=== PATIENT | male | born 1965 | race Caucasian/White ===

== ENCOUNTER 2017-03-27 14:57 | Inpatient (IN) | payer MEDICARE ==
[2017-03-27 15:30] VITALS: BMI 62.1
[2017-03-27] MEDS: Carvedilol 3.125 MG TAB PO SCH (17:12)
[2017-03-27] MEDS: Acetaminophen 500 MG TAB PO PRN (19:03)
[2017-03-27] MEDS: Cefdinir 300 MG CAP PO SCH (20:34)
[2017-03-28 06:01] LABS: #Basophils 0.2 thou/uL (0.0-0.2); #Eosinphils 0.1 thou/uL (0.0-0.7); #Monocytes 1.7 thou/uL (0.11-0.59); #Neutrophils 10.2 thou/uL (1.40-6.50); %Basophils 1.4 % (0.0-1.0); %Eosinophils 0.9 % (0.0-10.0); %Lymphocytes 13.8 % (21.0-51.0); %Monocytes 12.1 % (0.0-10.0); %Neutrophils 71.8 % (42.0-75.0); Hemoglobin 10.7 g/dL (14.0-18.0); Mean Corpuscular Hemoglobin 28.1 pg (27.0-31.0); Mean Corpuscular Volume 85.2 fl (80.0-94.0); Mean Platelet Volume 5.4 fL (7.4-10.4); Platelet Count 619 thou/uL (130-400); RBC Distribution Width 12.5 % (11.5-14.5); White Blood Cell (WBC) Count 14.3 thou/uL (4.8-10.8)
[2017-03-28 06:03] LABS: Bilirubin Negative (Negative); Blood, Urine Small (Negative); Clarity Clear (Clear); Glucose, Urine (Dipstick) Negative (Negative); Leukocyte Trace (Negative); Nitrite Negative (Negative); Protein, Urine (Dipstick) Negative (Neg-Trace); Urobilinogen 0.2 mg/dL (0.2-1.0)
[2017-03-28 06:10] LABS: ALT (SGPT) 10 U/L (8-55); AST (SGOT) 12 U/L (5-34); Albumin 2.3 g/dL (3.5-5.0); Alkaline Phosphatase 91 U/L (40-150); Anion Gap 15 mmol/L (10-20); BUN (Urea Nitrogen) 8 mg/dL (8.4-25.7); Bilirubin, Total 0.3 mg/dL (0.2-1.2); Calc. Creatinine Clearance 288 mL/min (70-130); Calcium 8.5 mg/dL (7.8-10.44); Carbon Dioxide 23 mmol/L (22-29); Chloride 102 mmol/L (98-107); Estimated GFR-MDRD Greater than 90; Globulin 3.6 g/dL (2.4-3.5); Glucose 149 mg/dL (70-105); Potassium 3.7 mmol/L (3.5-5.1); Protein, Total 5.9 g/dL (6.0-8.3); Sodium 136 mmol/L (136-145)
[2017-03-28 06:13] LABS: Specific Gravity, Urine 1.006 (1.002-1.036)
[2017-03-28 06:17] LABS: Bacteria/HPF Rare-Few HPF (None Seen); RBC/HPF 0-3 HPF (0-3); WBC/HPF 0-3 HPF (0-3)
--- NOTE | 2017-03-28 06:42 | HP ---
DATE OF ADMISSION: 03/27/2017 HISTORY OF PRESENT ILLNESS: The patient is a 52-year-old obese white male with a long history of a large ventral hernia who presented to [facility] on 03/13/2017 with complaints o f abdominal pain and was found to have an incarcerated ventral hernia. He was initially felt to req uire nonsurgical treatment because of his significant risk for his morbidity because of lack of a se ptic presentation, but he continued to have increasing abdominal pain. Finally, had laparotomy done by Dr. Pedersen where he was found to have an area of ischemic intestine required resection, but wa s reconnected his wound was left open with a wound VAC, which has been discontinued and he has been on oral antibiotics, which will be discontinued in 2 days. However, it is felt that he has still co ntinued to have drainage from four different range in his abdomen, which two have been removed and o nly two are remaining, but will remain until he was seen by Dr. Pedersen in 2 weeks. For this reaso n, he is felt to require snf facility to care for the drain. He has been walking some i n the hospital, but prior to this was ambulating caring for his ADLs completely alone. PAST MEDICAL HISTORY: Type 2 diabetes seems to be well controlled; chronic venous insufficiency; es sential hypertension; and morbid obesity. PAST SURGICAL HISTORY: Positive for previous open cholecystectomy. SOCIAL HISTORY: Occasional alcohol use, smoked half a pack of cigarettes last year. ALLERGIES: No known allergies. CURRENT MEDICATIONS: Include lisinopril 40 mg daily, hydrochlorothiazide 25 daily, aspirin 325 michelle y, metformin 500 mg daily, carvedilol 3.125 daily, and Tylenol as needed. REVIEW OF SYSTEMS: Constitutional: He denies any headache, dizziness, change in vision or hearing, hoarseness or dysphagia. Pulmonary: Denies cough, sputum production, pneumonia, asthma, tuberculo sis. Cardiovascular: Denies chest pain, orthopnea, paroxysmal nocturnal dyspnea or edema. Gastroi ntestinal: The above-mentioned history of abdominal pain. No nausea, vomiting, or diarrhea. Genit ourinary: Denies dysuria, hematuria or nocturia. Musculoskeletal: Denies stiffness, swelling in j oints or extremities. Neurologic: Denies localized numbness, weakness in arms or extremities. PHYSICAL EXAMINATION: GENERAL: The patient is a morbidly obese middle-aged white male, in no acute distress sitting in th e bed. VITAL SIGNS: Showed him to have blood pressure 133/68, temperature of 101.2, pulse 106, respiration s 21, and O2 sats 94%. HEENT: Pupils are equal, round, and react to light and accommodation. Sclerae are anicteric. Conj unctivae are pale. Oral mucous membranes well hydrated. NECK: Supple, no nodes or masses. JVP is not elevated. LUNGS: Clear. CARDIOVASCULAR: Regular rhythm. ABDOMEN: Soft and nontender with draining a large amount of brown liquid from his right lower quadr ant with minimal tenderness. SKIN/EXTREMITIES: Display no edema, clubbing, cyanosis, but morbid obesity. NEUROLOGICAL: Intact. LABORATORY DATA: Obtained from previous hospital showed him to have no recent labs. ASSESSMENT: A 52-year-old white male with history of ischemic bowel from an incisional abdominal he rnia, who had resection of the ischemic bowel and large open abdominal wound, wound VAC in place wit h dry dressing in place, but also has a continuous drainage of a brown thin liquid from his right lo wer quadrant, felt possibly due to recurrent infection. He is only on cefdinir, we will be on this for the next 2 days according to the surgical recommendations, but he is febrile again today and we will repeat CBC and comprehensive metabolic profile. Labs in the morning draw another set of blood cultures and may need to start on IV antibiotics and discuss further with the surgeon and possible o btain CT scan.
[2017-03-28] MEDS: metFORMIN HCl XR 500 MG TAB PO SCH (07:57)
[2017-03-28] MEDS: Carvedilol 3.125 MG TAB PO SCH ×2 (07:57→16:36)
[2017-03-28] MEDS: Cefdinir 300 MG CAP PO SCH ×2 (08:47→21:24)
[2017-03-28] MEDS ORDERED: Lisinopril 20 MG TAB PO SCH (09:00)
[2017-03-28] MEDS ORDERED: Hydrochlorothiazide 25 MG TAB PO SCH (09:00)
[2017-03-28] MEDS ORDERED: Aspirin 325 MG TAB PO SCH (09:00)
[2017-03-28] MEDS: traMADol HCl 50 MG TAB PO PRN (16:38)
[2017-03-28] MEDS: Acetaminophen 500 MG TAB PO PRN (16:39)
[2017-03-29] MEDS: Carvedilol 3.125 MG TAB PO SCH ×2 (07:38→16:28)
[2017-03-29] MEDS: metFORMIN HCl XR 500 MG TAB PO SCH (07:38)
[2017-03-29] MEDS: Cefdinir 300 MG CAP PO SCH ×2 (08:33→20:50)
[2017-03-29] MEDS: Lisinopril 5 MG TAB PO SCH (08:33)
[2017-03-29] MEDS: traMADol HCl 50 MG TAB PO PRN (08:34)
[2017-03-29] MEDS: Acetaminophen 500 MG TAB PO PRN ×2 (08:34→19:51)
--- NOTE | 2017-03-29 10:19 | PRG ---
DATE OF SERVICE: 03/28/2017 SUBJECTIVE: The patient feels well with no pain, no nausea and vomiting, no shortness of breath and is ready to do physical therapy. OBJECTIVE: Temperature did go to 101.2 last night, pulse 106, respirations 21, O2 sats 94%, down to 97.2, now. Laboratory showed white count is still slightly elevated at 14,300, hematocrit 32, hemo globin 10. Sodium is 136, potassium 3.7, chloride 102, bicarbonate 23, BUN 8, creatinine 0.875, glu cose 149, calcium 8.5, AST 12, ALT 10, albumin 2.3. Urinalysis within normal limits. Lungs are sophie ar. Cardiac examination shows regular rhythm. Abdomen is soft and nontender, good bowel sounds. A bdominal drain is still draining a significant amount of serous fluid, 425 mL out of the right lower quadrant, 130 out of left lower quadrant. The patient has only taken in 960, but is eating all his meal. ASSESSMENT: Persistent drainage from ischemic bowel after incarcerated hernia with possible infecti on or abscess formation with no symptoms and persistent elevated white count. The patient is on ora l antibiotics per recommendation of Surgery and we will continue this. We will monitor closely and if persistent leukocytosis, fever, will repeat CT scan. Antibiotics are due to finish in the next s everal days, but may need to continue these and start IV antibiotics if persistent fever. We will s tart on physical therapy and stress the need to the patient to ambulate.
[2017-03-30] MEDS: metFORMIN HCl XR 500 MG TAB PO SCH (08:19)
[2017-03-30] MEDS: Lisinopril 5 MG TAB PO SCH (08:19)
[2017-03-30] MEDS: Carvedilol 3.125 MG TAB PO SCH ×2 (08:19→16:40)
--- NOTE | 2017-03-31 06:54 | PRG ---
DATE OF SERVICE: 03/30/2017 HISTORY OF PRESENT ILLNESS: Mr. Morton is a 52-year-old morbidly obese white male with a large ve ntral hernia, presented to [facility]. He had laparotomy done by Dr. Pedersen f ound to have an area of ischemic intestine, which require resection. End-to-end anastomosis was don e and the patient was left open with a wound VAC. His antibiotics have been stopped and he was lyle sferred here for physical therapy, occupational therapy, and continuation of wound care. He has act ually been doing very well today. SUBJECTIVE: The patient states he feels well, he has been eating really well, he has had no problem s eating. He has had no problems with bowel movements. The patient did not spike a temperature tod ay. He states he feels great. He continues to have drainage from one drain of 150 mL and the other drain is 20 mL. PHYSICAL EXAMINATION: GENERAL: This is a well-developed, well-nourished, morbidly obese white male in no apparent distres s at this time. HEENT: Reveals normocephalic, nontraumatic cranium. Pupils are equally round and reactive. Extrao cular movements intact. Nose and throat are dry. NECK: Supple, without masses, nodes or bruits. CHEST: Clear to auscultation, no rales, rhonchi, wheezes or cough is heard. HEART: Reveals a regular rate and rhythm without murmurs, gallops or rubs. ABDOMEN: Morbidly obese, nontender, without organomegaly. Midline incision is healing well, not mu ch drainage is noted. Patient has 2 Manpreet-Morris drains, one has had a total of 150 mL today over 12 hours, the other had 20 mL. GENITOURINARY: Deferred. EXTREMITIES: Reveal no clubbing, cyanosis, but morbidly obese. IMPRESSION: 1. Ischemic bowel, status post resection and end-to-end anastomosis. 2. Wound VAC. 3. Two Manpreet-Morris drains. 4. Diabetes type 2, controlled. 5. Essential hypertension. 6. Morbid obesity. 7. Chronic venous insufficiency. PLAN: 1. Continue to monitor his Manpreet-Morris drains. 2. Continue to encourage the patient be somewhat more adapted doing some physical therapy. 3. Continue nutritional diet supplementation. 4. Continues cefdinir. 5. Continue to follow up labs. 6. Follow up with Dr. Pedersen next week. 7. If the patient spikes a temperature, we will do a CT scan.
[2017-03-31] MEDS: Carvedilol 3.125 MG TAB PO SCH ×2 (07:51→16:47)
[2017-03-31] MEDS: metFORMIN HCl XR 500 MG TAB PO SCH (07:51)
--- NOTE | 2017-03-31 09:27 | PRG ---
DATE OF SERVICE: 03/31/2017 HISTORY OF PRESENT ILLNESS: Mr. Morton is a 52-year-old morbidly obese white male that had a very large hernia. Presented to [facility] and had a laparotomy done by Dr. Rosalinda gibbons. He was found to have some ischemic intestines, which required resection with end-to-end anastomo sis. The patient had a wound VAC placed for his open wound and placed on antibiotics until he was s tabilized. He then was transferred here and we have been following him for physical therapy, occupa tional therapy, increasing his appetite and his nutrition. SUBJECTIVE: The patient states he is doing well. He states he had a good night. He has no fever. He has no abdominal pain. He is eating well. He has no complaints. PHYSICAL EXAMINATION: VITAL SIGNS: Blood pressure is 144/75, pulse 88-94, respirations 18-19, O2 sat 95-99% on room air. T-max 99.5. GENERAL: This is a well-developed, well-nourished, morbidly obese white male in no apparent distres s at this time. HEENT: Reveals normocephalic, nontraumatic cranium. Pupils are equally round and reactive. Extrao cular movements intact. Nose and throat are moist. NECK: Supple, without masses, nodes or bruits. LUNGS: Chest is clear to auscultation, no rales, rhonchi, wheezes or cough is heard. CARDIOVASCULAR: Reveals a regular rate and rhythm without murmurs, gallops or rubs. ABDOMEN: Morbidly obese. It is nontender. Normal bowel sounds are heard in all 4 quadrants. Jonh son-Morris drains are still draining. GENITOURINARY: Deferred. EXTREMITIES: Reveal no clubbing, cyanosis. Patient does have morbid obesity. IMPRESSION: 1. Ischemic bowel, status post resection with end-to-end anastomosis. 2. Wound VAC. 3. Manpreet-Morris drain still in place. 4. Diabetes type 2, fairly well controlled. 5. Hypertension. 6. Morbid obesity. 7. Chronic venous insufficiency. 8. Lymphedema. PLAN: 1. Continue the patient's drains until they drain less than 20 mL for 24 hours. 2. Encouraged physical therapy and occupational therapy for this patient. 3. Encouraged continued nutritional dieting. 4. Continue cefdinir. 5. Follow up labs. 6. Follow up with Dr. Pedersen next week. 7. If the patient spikes a temperature, we will order CT scan.
[2017-03-31] MEDS: Lisinopril 5 MG TAB PO SCH (09:51)
[2017-03-31] MEDS: traMADol HCl 50 MG TAB PO PRN (15:35)
[2017-03-31] MEDS: Acetaminophen 500 MG TAB PO PRN (19:40)
[2017-04-01 07:42] LABS: #Basophils 0.1 thou/uL (0.0-0.2); #Eosinphils 0.2 thou/uL (0.0-0.7); #Lymphocytes 1.8 thou/uL (1.20-3.40); %Basophils 1.5 % (0.0-1.0); %Eosinophils 2.2 % (0.0-10.0); %Lymphocytes 20.1 % (21.0-51.0); %Monocytes 10.6 % (0.0-10.0); %Neutrophils 65.6 % (42.0-75.0); Mean Corpuscular HGB CONC 33.1 g/dL (32.0-36.0); Mean Corpuscular Hemoglobin 28.2 pg (27.0-31.0); Mean Corpuscular Volume 85.1 fl (80.0-94.0); Mean Platelet Volume 5.2 fL (7.4-10.4); Platelet Count 705 thou/uL (130-400); Red Blood Cell (RBC) Count 3.54 mill/uL (4.70-6.10); White Blood Cell (WBC) Count 9.1 thou/uL (4.8-10.8)
[2017-04-01] MEDS: metFORMIN HCl XR 500 MG TAB PO SCH ×2 (07:50→11:42)
[2017-04-01] MEDS: Carvedilol 3.125 MG TAB PO SCH ×3 (07:50→16:33)
[2017-04-01 07:54] LABS: Anion Gap 16 mmol/L (10-20); BUN (Urea Nitrogen) 9 mg/dL (8.4-25.7); Calc. Creatinine Clearance 304 mL/min (70-130); Calcium 8.7 mg/dL (7.8-10.44); Carbon Dioxide 26 mmol/L (22-29); Chloride 99 mmol/L (98-107); Estimated GFR-MDRD Greater than 90; Glucose 135 mg/dL (70-105); Potassium 3.7 mmol/L (3.5-5.1); Sodium 137 mmol/L (136-145)
[2017-04-01] MEDS: Lisinopril 5 MG TAB PO SCH ×3 (08:51→11:42)
[2017-04-01] MEDS ORDERED: Iopamidol 370 76% 100 ML VIAL ONE (09:00)
--- NOTE | 2017-04-01 14:00 | PRG ---
DATE OF SERVICE: 04/01/2017 SUBJECTIVE: The patient feels well with no abdominal pain, increased strength. No nausea, vomiting , diarrhea, shortness of breath or chest pain. He has been only minimally walking with therapy over the weekend. OBJECTIVE: Shows Accu-Cheks have been stable from 135-161. Output from his drain has continued to be significant amount and it now appears to be sucking air from the open wound with a possible fistu la. LABORATORY DATA: White count has improved to 9100 with a hematocrit of 30 and hemoglobin of 10. IMAGING DATA: CT scan of the abdomen; however, is pending. ASSESSMENT: Persistent drainage from the right lower quadrant drained possible abscess with possibl e fistula to the abdominal wound. PLAN: Obtain CT scan discussed with Dr. Pedersen. Continue wound care. His antibiotics have finis hed.
--- NOTE | 2017-04-01 14:06 | CT ---
ABDOMEN AND PELVIC CT SCAN WITH IV CONTRAST: HISTORY: A 52-year-old male with a history of intraabdominal abscess with bilateral drains, recent hernia shaila alistair. Exam is severely limited technically because of the patient's very large body habitus. Some of the more anterior aspects of the abdomen are not included on this study. The anterior abdominal wall is not completely included. Mild linear stranding in both lung bases. Status post cholecystec benny. The visualized liver, fatty replaced pancreas, spleen, and adrenal glands are unremarkable. No evidence for renal calculus or acute obstruction. Normal-appearing appendix. There appears t o be severe anterolisthesis of L5-S1 with considerable associated degenerative change which is less than optimally evaluated on this study. No evidence for abscess or significant abnormal fluid colle ction within the abdomen or pelvis. There does appear to be some air and fluid within the anterior abdominal wall in which there appear to be 2 surgical drains. This area is incompletely visualized . IMPRESSION: Very limited study because of patient's abnormally large body habitus. There appears to be some air and fluid within the anterior abdominal wall in which there are noted to be 2 surgical percutaneous drains. No evidence for intraabdominal abscess or abnormal fluid collection or other acute process . Other findings as above. POS: [facility]
[2017-04-01] MEDS: traMADol HCl 50 MG TAB PO PRN (20:30)
[2017-04-01] MEDS: Acetaminophen 500 MG TAB PO PRN (20:30)
[2017-04-02] MEDS: Carvedilol 3.125 MG TAB PO SCH ×2 (07:33→16:42)
[2017-04-02] MEDS: metFORMIN HCl XR 500 MG TAB PO SCH (07:33)
[2017-04-02] MEDS: Lisinopril 5 MG TAB PO SCH (08:52)
[2017-04-02] MEDS: traMADol HCl 50 MG TAB PO PRN (13:05)
[2017-04-02] MEDS: Acetaminophen 500 MG TAB PO PRN ×2 (13:05→20:59)
--- NOTE | 2017-04-03 06:16 | PRG ---
DATE OF PROGRESS NOTE: 04/02/2017 MEDICAL PROGRESS NOTE SUBJECTIVE: The patient feels well with no abdominal pain, no fever, chills or cough. The patient has had a fever; however, intermittently over the last several days has been evaluated with CT scan done yesterday. He has had no nausea or vomiting or abdominal pain. Has been and up walking in the [place]. OBJECTIVE: VITAL SIGNS: This morning shows his temperature is 96, pulse 79, respirations 18, O2 sats 96%, bloo d pressure 136/86. LABORATORY DATA: Showed a white count was down to 9100, hematocrit 30, hemoglobin 10. Accu-Cheks a re stable at 108-170. A CT scan of the abdomen was poorly done, and secondary to his size, but did show air fluid within the anterior abdominal wall. Two surgical drains evident for intra-abdominal abscess. His abdomen is obese, but nontender. Lungs are clear. Cardiac examination shows regular rhythm. The patient is working with therapy, and in fact walked 460 feet with a standing rest break . Abdominal drains, however, still putting out significant amount of drainage, particularly from the r ight lower quadrant drain and still putting out 400 mL a day with no decrease. ASSESSMENT: Persistent drainage from the right lower quadrant with poor CT scan showing no evidence except for intra-abdominal fluid, but persistent fluid in the abdominal wall. He is off of his ant ibiotics now and is having intermittent fever, but normal white count. PLAN: Discuss with surgeon, Dr. Pedersen, about his persistent large amount of output and recurrent intermittent fevers possibility of enterocutaneous abscess. We will culture fluid and discussed [facility] surgeon and he is due to be followed up next week to have the drains removed and will schedule.
[2017-04-03] MEDS: metFORMIN HCl XR 500 MG TAB PO SCH (07:53)
[2017-04-03] MEDS: Lisinopril 5 MG TAB PO SCH (07:53)
[2017-04-03] MEDS: Carvedilol 3.125 MG TAB PO SCH ×2 (07:54→17:00)
[2017-04-03 09:20] LABS: Bilirubin Negative (Negative); Blood, Urine Small (Negative); Clarity Clear (Clear); Glucose, Urine (Dipstick) Negative (Negative); Leukocyte Negative (Negative); Nitrite Negative (Negative); Protein, Urine (Dipstick) Negative (Neg-Trace); Urobilinogen 0.2 mg/dL (0.2-1.0)
[2017-04-03 10:03] LABS: Bacteria/HPF Rare-Few HPF (None Seen); Other Microscopic Description NO; RBC/HPF 0-3 HPF (0-3); WBC/HPF None Seen HPF (0-3)
--- NOTE | 2017-04-03 10:10 | RAD ---
Please disregard this report. The wrong pt was sent under this exam. PA AND LATERAL CHEST: History: Fever. Comparison: None. FINDINGS: Cardiomegaly. Transvenous AICD leads. Lung parada appear clear with no infiltrate seen. Vascular mar kings are upper normal. Aortic calcifications seen. Degenerative spine changes. IMPRESSION: Please disregard this report. The wrong pt was sent under this exam. Cardiomegaly and atherosclerotic changes in the aorta Please disregard this report. The wrong pt was sent under this exam. POS: [facility]
--- NOTE | 2017-04-03 12:24 | RAD ---
TWO VIEW CHEST: Comparison: None. Indication: Short of breath, abdominal abscess. FINDINGS: There is elevation of the left hemidiaphragm. No lobar consolidation, significant effusion, or discr ete pneumothorax. Cardiac silhouette is within normal limits in size. Mild osseous degenerative wilburn ge. IMPRESSION: No focal consolidation. POS: [facility]
[2017-04-03 19:17] LABS: #Basophils 0.1 thou/uL (0.0-0.2); #Eosinphils 0.2 thou/uL (0.0-0.7); #Lymphocytes 1.8 thou/uL (1.20-3.40); #Neutrophils 7.3 thou/uL (1.40-6.50); %Basophils 1.3 % (0.0-1.0); %Lymphocytes 17.6 % (21.0-51.0); %Monocytes 9.3 % (0.0-10.0); %Neutrophils 69.8 % (42.0-75.0); Hemoglobin 10.2 g/dL (14.0-18.0); Mean Corpuscular HGB CONC 32.5 g/dL (32.0-36.0); Mean Corpuscular Hemoglobin 27.4 pg (27.0-31.0); Mean Corpuscular Volume 84.3 fl (80.0-94.0); Mean Platelet Volume 5.2 fL (7.4-10.4); Platelet Count 603 thou/uL (130-400); RBC Distribution Width 12.1 % (11.5-14.5); Red Blood Cell (RBC) Count 3.71 mill/uL (4.70-6.10); White Blood Cell (WBC) Count 10.4 thou/uL (4.8-10.8)
[2017-04-03] MEDS: Acetaminophen 500 MG TAB PO PRN (20:22)
--- NOTE | 2017-04-04 00:38 | PRG ---
DATE OF PROGRESS NOTE: 04/03/2017 MEDICAL PROGRESS NOTE SUBJECTIVE: The patient feels well. With no complaints of abdominal pain, nausea, vomiting, fever, or chill. Has been ambulating in the [place] with therapy. He has been off of antibiotics for severa l days. OBJECTIVE: VITAL SIGNS: Shows temperature up to 101 last night, pulse 86, respirations 20, O2 sats 96%, blood pressure 141/83. LABORATORY DATA: White count shows still normal at 10,400, hematocrit 31, hemoglobin 10. Urinalysi s within normal limits. Chest x-ray showed no focal consolidation assess. Intake and output shows persistent large amount of drainage from the right lower, drains at 700 mL per day. ASSESSMENT: Current fever. Patient with recurrent drainage from right lower quadrant. PLAN: Obtain results of culture from drainage. Discuss with Surgery for possible need for further exploration as no other source of infection discernible.
[2017-04-04] MEDS ORDERED: Lisinopril 5 MG TAB PO SCH (07:16)
[2017-04-04] MEDS: metFORMIN HCl XR 500 MG TAB PO SCH (07:51)
[2017-04-04] MEDS: Cefdinir 300 MG CAP PO SCH ×2 (09:04→21:02)
[2017-04-04] MEDS: Lisinopril 5 MG TAB PO SCH (09:04)
--- NOTE | 2017-04-05 02:02 | PRG ---
DATE OF SERVICE: 04/04/2017 SUBJECTIVE: The patient feels well, walking in the [place] with no nausea, vomiting, cough or abdomina l pain. OBJECTIVE: VITAL SIGNS: He did have a temperature of 102.2 last night with a pulse of 100, respirations 22, O2 sats 95%, blood pressure 146/73. LUNGS: Clear. CARDIAC: Examination shows regular rhythm. LABORATORY DATA: White count today is 10,400, hematocrit of 31, hemoglobin 10. Accu-Cheks stable a t 125-152. Urinalysis within normal limits. Chest x-ray showed no infiltrates. Abdomen reveals no tenderness, but persistent significant drainage out of the right lower quadrant drain measuring 400 -500 daily. Abdominal fluid drained still pending. Blood cultures no growth. ASSESSMENT AND PLAN: Persistent fever and intermittent and persistent drainage from right lower michel drant drain concerning for intra-abdominal abscess, although normal white count and no tenderness in the abdomen. We will restart on cefdinir. We will discharge tomorrow to follow up with surgeon as may need further surgical evaluation at [facility].
[2017-04-05] MEDS: Acetaminophen 500 MG TAB PO PRN (05:54)
[2017-04-05] MEDS: traMADol HCl 50 MG TAB PO PRN (05:54)
[2017-04-05] MEDS: metFORMIN HCl XR 500 MG TAB PO SCH (07:34)
[2017-04-05] MEDS: Lisinopril 5 MG TAB PO SCH (07:34)
[2017-04-05] MEDS: Cefdinir 300 MG CAP PO SCH (07:35)
[2017-04-05 11:43] VITALS: BP 134/85; TEMP 97
== END 2017-04-05 19:01 | disposition home health service (06) | DRG 920 ==
LOC: NAV ACUTE 14:57
PROVIDERS: ADMIT Internal Medicine; ATTEND Internal Medicine
DX: T81.89XA Other complications of procedures, not elsewhere classified, initial encounter (principal); Z68.44 Body mass index [BMI] 60.0-69.9, adult; I10 Essential (primary) hypertension; E66.01 Morbid (severe) obesity due to excess calories; E11.9 Type 2 diabetes mellitus without complications; I87.2 Venous insufficiency (chronic) (peripheral); Z90.49 Acquired absence of other specified parts of digestive tract; Z87.891 Personal history of nicotine dependence; R50.9 Fever, unspecified; I89.0 Lymphedema, not elsewhere classified
CPT/HCPCS: 36416; 71020; 74178; 80048; 80053; 81001; 81003; 81015; 85025; 87040; 87070; 87077; 87149; 87205; 36415-59